=== PATIENT | male | born 1985 | race African-American/Black ===

== ENCOUNTER 2019-06-17 09:22 | Inpatient (IN) | payer OTHER ==
[2019-06-17] MEDS ORDERED: morphine CARPU-JECT 2 MG/1 ML DISP.SYRIN IVPUSH ONE (10:03)
[2019-06-17] MEDS ORDERED: SODIUM CHLORIDE 1,000 ML IV STA (10:04)
[2019-06-17] MEDS ORDERED: MORPHINE SULFATE 2 MG/ML VIAL ONE (10:27)
[2019-06-17 11:18] LABS: BASO % 0.3 % (0-2.0); EOS % 0.3 % (0-4.5); HEMATOCRIT 41.2 % (35.4-49); HEMOGLOBIN 13.4 GM/dL (11.7-16.9); MCHC 32.5 g/dl (32.0-35.9); MEAN CELL VOLUME 83.2 fl (80-96); MEAN PLT VOLUME 9.6 fl (7.5-11.1); MONO % 7.1 % (3.8-10.2); NEUT % 84.3 % (42.8-82.8); PLATELET COUNT 218 K/MM3 (134-434); RBC 4.95 M/mm3 (4.00-5.60); RDW 12.7 % (11.9-15.9); WHITE BLOOD COUNT 17.6 K/mm3 (4.0-10.0)
[2019-06-17 11:39] LABS: ALBUMIN 3.8 g/dl (3.4-5.0); BILIRUBIN,TOTAL 0.9 mg/dL (0.2-1); BLOOD UREA NITROGEN 7.6 mg/dL (7-18); CALCIUM 9.4 mg/dL (8.5-10.1); CREATININE 1.3 mg/dL (0.55-1.3); POTASSIUM 4.6 mmol/L (3.5-5.1); TOT PROT 7.6 g/dl (6.4-8.2)
[2019-06-17] MEDS ORDERED: ACETAMINOPHEN 1000 MG/100 ML VIAL (NON FORMULARY) IVPB ONE (12:00)
--- NOTE | 2019-06-17 12:02 | PDOC ---
Documentation entered by Satya Márquez SCRIBE, acting as scribe for Lesly Monroy MD. Lesly Monroy MD: This documentation has been prepared by the Willi rodriguez Daniel, SCRIBE, under my direction and personally reviewed by me in its entirety. I confirm that the documentation accurately reflects all work, treatment, procedures, and medical decision making performed by me. Attending Attestation - Resident Resident Name: Srinivas Hernandez - ED Attending Attestation I have performed the following: I have examined & evaluated the patient, The case was reviewed & discussed with the resident, I agree w/resident's findings & plan, Exceptions are as noted - HPI HPI: 06/17/19 11:59 The patient is a 34 year old male with a past medical history of rectal abscess s/p surgical intervention here today for evaluation of rectal pain. The patient reports that his pain started on tuesday (04/15/2020) and describes it as internal rectal pain. He states that his pain is worse with bowel movement ( last BM today and was normal) and after urination. Patient recently emigrated from [place]. Patient denies headache, lightheadedness. Denies fever, chills. Denies chest pain, shortness of breath. Denies nausea, vomiting, diarrhea, abdominal pain. Allergies: NKA - Physicial Exam PE: 06/17/19 12:00 agree with resident exam - Medical Decision Making 06/17/19 12:00 34yo M hx perirectal abscess requiring surgical intervention presents to the ED with perirectal pain concerning for recurrence No systemic signs of infection - pt denies f/c, N/V. Normal BM today, had pain when defecting however Plan for labs, CTAP with PO and IV contrast, pain control, reassess CTAP with R posteriolateral perirectal abscess - case discussed with Dr. Love who will take pt to OR. Pt admitted to hospitalist for further mgmt
[2019-06-17] MEDS ORDERED: ACETAMINOPHEN INJECTION 100 ML IVPB ONE (12:47)
--- NOTE | 2019-06-17 13:53 | PDOC ---
History of Present Illness - General Chief Complaint: Pain Stated Complaint: LOWER BACK PAIN Time Seen by Provider: 06/17/19 09:31 History Source: Patient Exam Limitations: No Limitations - History of Present Illness Initial Comments: 34 yo M with a hx of rectal abscess that was surgically intervened upon 3 years ago in [place] presents to the emergency department for rectal pain that has been ongoing since 06/15/2019. Per the patient, the pain feels similar to the pain he had when the rectal abscess was present. The patient says the pain exacerbates worse with bowel movements, but denies hematochezia and melena. In addition, he has pain worsening at the end of urination, but denies dysuria, hematuria, and urinary frequency. Denies the following: fevers, chills, SOB, chest pain, nausea, vomiting, abdominal pain, and leg pain/swelling. Allergies: NKDA Past History - Past Medical History Allergies/Adverse Reactions: Allergies Allergy/AdvReac Type Severity Reaction Status Date / Time No Known Allergies Allergy Verified 06/17/19 09:29 Home Medications: Ambulatory Orders Acetaminophen [Tylenol .Regular Strength -] 650 mg PO Q4H PRN #60 tablet Amox-Tr/K Cl [Augmentin - 875Mg Tablet] 1 tab PO BID #14 tablet 06/20/19 Docusate Sodium [Colace -] 100 mg PO BID #30 capsule 06/20/19 Ibuprofen [Motrin -] 400 mg PO TID #21 tablet 06/20/19 COPD: No - Psycho Social/Smoking Cessation Hx Smoking History: Never smoked Review of Systems - Review of Systems Able to Perform ROS?: Yes Is the patient limited Gabonese proficient: No Constitutional: No: Chills, Diaphoresis, Fever, Weakness HEENTM: No: Eye Pain, Ear Pain, Nose Pain, Throat Pain, Mouth Pain Cardiac (ROS): No: Chest Pain, Lightheadedness, Palpitations, Chest Tightness ABD/GI: No: Constipated, Diarrhea, Nausea, Rectal Bleeding, Vomiting, Tarry Stools : Yes: Other (rectal pain). No: Burning, Dysuria, Hematuria, Incontinence Musculoskeletal: No: Back Pain, Joint Pain, Neck Pain Integumentary: No: Bruising, Erythema, Rash Neurological: No: Headache, Numbness, Tingling, Tremors Psychiatric: No: Change in Appetite Endocrine: No: Unexplained Weight Loss Hematologic/Lymphatic: No: Anemia *Physical Exam - Vital Signs Last Vital Signs Temp Pulse Resp BP Pulse Ox 98.6 F 79 18 119/75 99 06/17/19 09:26 06/17/19 09:26 06/17/19 09:26 06/17/19 09:26 06/17/19 09:26 - Physical Exam General Appearance: Yes: Nourished, Appropriately Dressed. No: Apparent Distress, Intoxicated HEENT: positive: EOMI, TYE, Normal Voice, Symmetrical, Pharynx Normal, Other ( dry mucous membranes). negative: Pale Conjunctivae, Scleral Icterus (R), Scleral Icterus (L), Muffled/Hoarse voice, Pharyngeal Erythema, Tonsillar Exudate, Tonsillar Erythema, Nasal Congestion, Rhinorrhea, Sinus Tenderness Neck: positive: Trachea midline, Supple. negative: Tender, Lymphadenopathy (R) , Lymphadenopathy (L), Tender lateral, Tender midline Respiratory/Chest: positive: Lungs Clear, Normal Breath Sounds. negative: Chest Tender, Respiratory Distress, Accessory Muscle Use, Crackles, Rales, Rhonchi, Stridor, Wheezing Cardiovascular: positive: Regular Rhythm, Regular Rate, S1, S2. negative: Systolic Murmur Gastrointestinal/Abdominal: positive: Normal Bowel Sounds, Flat, Soft. negative : Tender, Distended, Guarding, Rebound Rectal Exam: positive: normal rectal tone, other (fluctuance noted in the right lateral aspect of the rectum tender to palpation). negative: melena, heme positive stool, hemorrhoids Lymphatic: negative: Adenopathy Musculoskeletal: positive: Normal Inspection. negative: CVA Tenderness, Vertebral Tenderness Extremity: positive: Normal Capillary Refill, Normal Inspection, Normal Range of Motion. negative: Tender, Swelling, Calf Tenderness Integumentary: positive: Normal Color, Dry, Warm. 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 negative: EOM Palsy, Facial Droop , Numbness, Sensory Deficit ED Treatment Course - LABORATORY CBC & Chemistry Diagram: 06/20/19 10:30 06/20/19 10:30 - ADDITIONAL ORDERS Additional order review: Laboratory Results 06/17/19 10:50 Sodium 141 Potassium 4.6 Chloride 106 Carbon Dioxide 30 Anion Gap 6 L BUN 7.6 Creatinine 1.3 Est GFR (CKD-EPI)AfAm 82.51 Est GFR (CKD-EPI)NonAf 71.19 Random Glucose 95 Calcium 9.4 Total Bilirubin 0.9 AST 19 ALT 25 Alkaline Phosphatase 69 Total Protein 7.6 Albumin 3.8 06/17/19 10:50 RBC 4.95 MCV 83.2 MCHC 32.5 RDW 12.7 MPV 9.6 Neutrophils % 84.3 H Lymphocytes % 8.0 Monocytes % 7.1 Eosinophils % 0.3 Basophils % 0.3 - Medications Given in the ED: ED Medications Discontinued Medications Generic Name Dose Route Start Last Admin Trade Name Freq PRN Reason Stop Dose Admin Acetaminophen 1,000 mg 06/17/19 12:00 06/17/19 12:51 Ofirmev Injection - IVPB 06/17/19 12:01 1,000 mg ONCE ONE Administration Sodium Chloride 1,000 mls @ 1,000 mls/hr 06/17/19 10:04 06/17/19 10:50 Normal Saline - IV 06/17/19 11:03 1,000 mls/hr ASDIR STA Administration Morphine Sulfate 2 mg 06/17/19 10:03 06/17/19 10:50 Morphine Injection - IVPUSH 06/17/19 10:04 2 mg ONCE ONE Administration Medical Decision Making - Medical Decision Making 34 yo M with a hx of rectal abscess that was surgically intervened upon 3 years ago in [place] presents to the emergency department for rectal pain that has been ongoing since 06/15/2019. Initial vitals: Initial Vital Signs Temp Pulse Resp BP Pulse Ox 98.6 F 79 18 119/75 99 06/17/19 09:26 06/17/19 09:26 06/17/19 09:26 06/17/19 09:26 06/17/19 09:26 Work up: patient presents with rectal pain with a known history of abscess. the patient denies purulent discharge. no fever. will obtain labs and CTAP to evaluate for potential abscess. Laboratory Tests 06/17/19 06/17/19 06/17/19 10:50 10:50 12:30 WBC 17.6 H RBC 4.95 Hgb 13.4 Hct 41.2 MCV 83.2 MCH 27.0 MCHC 32.5 RDW 12.7 Plt Count 218 MPV 9.6 Absolute Neuts (auto) 14.9 H Neutrophils % 84.3 H Lymphocytes % 8.0 Monocytes % 7.1 Eosinophils % 0.3 Basophils % 0.3 Nucleated RBC % 0 Sodium 141 Potassium 4.6 Chloride 106 Carbon Dioxide 30 Anion Gap 6 L BUN 7.6 Creatinine 1.3 Est GFR (CKD-EPI)AfAm 82.51 Est GFR (CKD-EPI)NonAf 71.19 Random Glucose 95 Calcium 9.4 Total Bilirubin 0.9 AST 19 ALT 25 Alkaline Phosphatase 69 Total Protein 7.6 Albumin 3.8 Urine Color Yellow Urine Appearance Clear Urine pH 6.0 Ur Specific [place] 1.011 Urine Protein Negative Urine Glucose (UA) Negative Urine Ketones Negative Urine Blood Negative Urine Nitrite Negative Urine Bilirubin Negative Urine Urobilinogen 1.0 Ur Leukocyte Esterase Negative leukocytosis noted CTAP shows an approximately 4.5 x 3.5 x 2.7 cm abscess cavity containing fluid and air noted within the right posterolateral miguel-rectal region. Tylenol and morphine were given for pain control. I consulted surgical PAs who agree this is not appropriate for ID in the emergency department and will require surgical intervention. Patient was accepted for pending ID of miguel-rectal abscess with leukocytosis. Dispo; Admit Discharge - Discharge Information Problems reviewed: Yes Clinical Impression/Diagnosis: Miguel-rectal abscess Condition: Fair - Follow up/Referral - Patient Discharge Instructions - Post Discharge Activity
[2019-06-17 13:54] LABS: URINE APPEARANCE CLEAR; URINE BILIRUBIN NEGATIVE (NEGATIVE); URINE COLOR YELLOW; URINE GLUCOSE (UA) NEGATIVE (NEGATIVE); URINE KETONE NEGATIVE (NEGATIVE); URINE LEUK ESTERASE NEGATIVE (NEGATIVE); URINE NITRITE NEGATIVE (NEGATIVE); URINE PROTEIN NEGATIVE (NEGATIVE)
[2019-06-17] MEDS ORDERED: morphine CARPU-JECT 4 MG/1 ML DISP.SYRIN IVPUSH ONE (15:42)
[2019-06-17] MEDS ORDERED: morphine SULFATE 4 MG/ML VIAL ONE (15:59)
[2019-06-17] MEDS ORDERED: CIPROFLOXACIN 400 MG/D5W 400 MG/200 ML IVPB IVPB ONE (16:08)
[2019-06-17] MEDS ORDERED: MORPHINE SULFATE 2 MG/ML VIAL IVPUSH PRN ×2 (17:00)
--- NOTE | 2019-06-17 17:00 | HP ---
Admitting History and Physical - Primary Care Physician PCP: none - Admission Chief Complaint: Rectal pain History of Present Illness: 34M with no significant PMH who presents to the hospital with a chief complaint of rectal pain for the last 2-3 days. Patient states he has a history of having a miguel-rectal abscess about 3 years ago and it was drained in the country of [place]. He states he came to the [facility] about a year ago and has not seen a doctor for preventative care at all. He endorses feeling a bit warm for the past 2 days but denies nausea vomiting fever chills chest pain SOB diarrhea constipation or abdominal pain. He has been eating and drinking well. He had a normal BM today but he had pain with defecation. Unable to provide much history about his exact and complete work up in [place]. Denies having a colonoscopy in the past or at the time of his diagnosis. Denies a history of colon cancer in himself or his family. Denies having a history of inflammatory bowel disease. When I asked about his family history he said he has a big family and doesn't know much about anyone's medical history not even primary relatives (Mother father brothers sisters). Denies being on any chronic medications or having any chronic medical problems. When i was able to be alone with the patient I asked about a history of high risk sexual behavior, anal penetration, history of STIs all of which he denied. In the ER he was noted to have leukocytosis with a WBC count of 17.6. He had a CT of the abdomen and pelvis with IV contrast which showed a right sided posterolateral perirectal abscess measuring 4.5x3.5x2.7cm with air and fluid in the abscess. The rest of his CBC CMP UA, and vital signs were unremarkable. History Source: Patient, Significant Other ( at bedside) Limitations to Obtaining History: No Limitations - Past Medical History Gastrointestinal: Yes: Diverticulosis (seen on CT today), Other (perirectal abscess s/p drainage 3 years ago in [place].) Infectious Disease: Yes: Other (perirectal abscess s/p drainage 3 years ago in [place].) - Past Surgical History Additional Past Surgical History: perirectal abscess drainage 3 years ago in [place] - Smoking History Smoking history: Never smoked - Social History Usual Living Arrangement: Yes: With Spouse Do you think of yourself as: Straight/Heterosexual ADL: Independent Home Medications - Allergies Allergies/Adverse Reactions: Allergies Allergy/AdvReac Type Severity Reaction Status Date / Time No Known Allergies Allergy Verified 06/17/19 09:29 Family Medical History Family History: Denies (patient does not know about family members medical histories. States he has a very bi family. doesnt know about his mother father sisters brothers histories ) Review of Systems - Review of Systems Constitutional: reports: Other (feeling warm for last 2 days) Eyes: reports: No Symptoms HENT: reports: No Symptoms Neck: reports: No Symptoms Cardiovascular: reports: No Symptoms Respiratory: reports: No Symptoms Gastrointestinal: reports: Other (rectal pain) Genitourinary: reports: No Symptoms Musculoskeletal: reports: No Symptoms Integumentary: reports: No Symptoms Neurological: reports: No Symptoms Endocrine: reports: No Symptoms Hematology/Lymphatic: reports: No Symptoms Psychiatric: reports: No Symptoms Pain Intensity: 6 Physical Examination Vital Signs: Vital Signs Temperature 98.6 F 06/17/19 09:26 Pulse Rate 76 06/17/19 15:50 Respiratory Rate 20 06/17/19 15:50 Blood Pressure 145/88 06/17/19 15:50 O2 Sat by Pulse Oximetry (%) 97 06/17/19 15:50 Constitutional: Yes: Well Nourished, No Distress, Calm Eyes: Yes: WNL, Conjunctiva Clear, EOM Intact HENT: Yes: Atraumatic, Normocephalic, Other (tongue is white and dry from dry oral mucosa but not thrush.) Neck: Yes: Supple Cardiovascular: Yes: WNL, Regular Rate and Rhythm Respiratory: Yes: WNL, Regular, CTA Bilaterally Gastrointestinal: Yes: WNL, Normal Bowel Sounds, Soft ...Rectal Exam: Yes: Deferred (patient did not want another rectal exam because he already had a couple from ER physicians) Renal/: Yes: WNL Musculoskeletal: Yes: WNL Extremities: Yes: WNL Edema: No Neurological: Yes: Alert, Oriented ...Motor Strength: WNL Psychiatric: Yes: Alert, Oriented Labs: CBC, BMP 06/17/19 10:50 06/17/19 10:50 Imaging - Results Cat Scan: Report Reviewed, Image Reviewed (4.5x3.5x2.7cm right posterolateral perirectal abscess) Assessment/Plan 34M with history of perirectal abscess s/p surgical drainage 3 years ago in [place] presents to the hospital with rectal pain found to have a right posterolateral perirectal abscess. right posterolateral 4.5x3.5x2.7cm perirectal abscess: got ciprofloxacin and flagyl in ER Patient not currently septic leukocytosis of 17.[address] Love will take patient to OR for incision and drainage tomorrow NPO past midnight pre-op labs including coags and type and screen pre-op EKG pain control patient will require GI evaluation/work up with colonoscopy which can be done as an outpatient vs inpatient pain control panculture if spikes fever will continue flagyl 500mg IV q8h and start ceftriaxone daily Patient agreeable to HIV screening-counselled. Oraquick screen ordered trend CBC CTAP also showed sigmoid diverticulosis without diverticulitis will need GI eval and likely colonoscopy which can be done as outpatient vs inpatient FEN: 05/31 NS @ 83ml/hr no electrolyte issues regular diet then NPO past midnight for OR PPx: SCDs for now and early ambulation to avoid DVT. will hold off on chemical PPx as patient s going to OR tomorrow No GI PPx indicated Visit type - Emergency Visit Emergency Visit: Yes Care time: The patient presented to the Emergency Department on the above date and was hospitalized for further evaluation of their emergent condition. - New Patient This patient is new to me today: Yes Date on this admission: 06/17/19 - Critical Care Critical Care patient: No
[2019-06-17] MEDS: SODIUM CHLORIDE 0.45% 1,000 ML IV SCH (19:07)
[2019-06-17] MEDS ORDERED: ACETAMINOPHEN 325 MG TABLET (FP) ONE (20:01)
[2019-06-17] MEDS: ACETAMINOPHEN 325 MG TABLET (FP) PO PRN (20:06)
[2019-06-18] MEDS: ACETAMINOPHEN 325 MG TABLET (FP) PO PRN ×3 (02:16→16:39)
[2019-06-18] MEDS ORDERED: MELATONIN 5 MG TABLETS PO ONE (02:21)
[2019-06-18 03:28] VITALS: BMI 26.0
--- NOTE | 2019-06-18 07:51 | CONSULT ---
- Consultation REQUESTING PROVIDER: CONSULT REQUEST: We have been asked to surgically evaluate this patient for perirectal abscess PCP:Yair Aldana MD HISTORY OF PRESENT ILLNESS: 34yo M was consulted for perirectal abscess. Pt states that he started having Rt sided rectal pain about 3 days ago that has been getting worse. Pt states he has a history of perirectal abscess in the area that was drained about 2 years ago in [place]. Pt admits to fevers and chills yesterday. Pt denies n/v , diarrhea, constipation. PMHx: denies Home Medications Medication Instructions Recorded NK [No Known Home Medication] 06/18/19 Allergies Allergy/AdvReac Type Severity Reaction Status Date / Time No Known Allergies Allergy Verified 06/17/19 09:29 REVIEW OF SYSTEMS: CONSTITUTIONAL: Absent: fever, chills, diaphoresis, generalized weakness, malaise, loss of appetite, weight change CARDIOVASCULAR: Absent: chest pain, syncope, palpitations, irregular heart rate, lightheadedness , peripheral edema RESPIRATORY: Absent: cough, shortness of breath, dyspnea with exertion, wheezing, stridor, hemoptysis GASTROINTESTINAL: Absent: abdominal pain, abdominal distension, nausea, vomiting, diarrhea, constipation, melena, hematochezia GENITOURINARY: Absent: dysuria, frequency, urgency, hesitancy, hematuria, flank pain, genital pain MUSCULOSKELETAL: Absent: myalgia, arthralgia, joint swelling, back pain, neck pain SKIN: Absent: rash, itching, pallor HEMATOLOGIC/IMMUNOLOGIC: Absent: easy bleeding, easy bruising, lymphadenopathy NEUROLOGIC: Absent: headache, focal weakness, paresthesias, dizziness, unsteady gait, seizure, mental status changes, bladder or bowel incontinence PSYCHIATRIC: Absent: anxiety, depression, suicidal or homicidal ideation, hallucinations. PHYSICAL EXAM: GENERAL: Awake, alert, and fully oriented, in no acute distress. HEAD: Normal with no signs of trauma. EYES: PERRL, sclera anicteric, conjunctiva clear. NECK: Normal ROM LUNGS: breathing comfortably HEART: Regular rate and rhythm. No murmurs ABDOMEN: Soft, nontender, not distended, normoactive bowel sounds, no guarding, no rebound, no masses. No organomegaly. Buttocks: swelling and tenderness on Rt buttock adjacent to rectum, no drainage , mild erythema. NEUROLOGICAL: Normal speech, gait not observed. PSYCH: Cooperative. Good eye contact. Appropriate mood and affect. SKIN: Warm, dry, normal turgor, no rashes or lesions noted. Vital Signs Temperature 100.5 F H 06/18/19 06:17 Pulse Rate 81 06/18/19 06:17 Respiratory Rate 20 06/18/19 06:17 Blood Pressure 125/62 06/18/19 06:17 O2 Sat by Pulse Oximetry (%) 100 06/17/19 21:00 Lab Results WBC 17.6 K/mm3 (4.0-10.0) H 06/17/19 10:50 RBC 4.95 M/mm3 (4.00-5.60) 06/17/19 10:50 Hgb 13.4 GM/dL (11.7-16.9) 06/17/19 10:50 Hct 41.2 % (35.4-49) 06/17/19 10:50 MCV 83.2 fl (80-96) 06/17/19 10:50 MCHC 32.5 g/dl (32.0-35.9) 06/17/19 10:50 RDW 12.7 % (11.9-15.9) 06/17/19 10:50 Plt Count 218 K/MM3 (134-434) 06/17/19 10:50 Sodium 141 mmol/L (136-145) 06/17/19 10:50 Potassium 4.6 mmol/L (3.5-5.1) 06/17/19 10:50 Chloride 106 mmol/L (98-107) 06/17/19 10:50 Carbon Dioxide 30 mmol/L (21-32) 06/17/19 10:50 Anion Gap 6 MMOL/L (8-16) L 06/17/19 10:50 BUN 7.6 mg/dL (7-18) 06/17/19 10:50 Creatinine 1.3 mg/dL (0.55-1.3) 06/17/19 10:50 Random Glucose 95 mg/dL (74-106) 06/17/19 10:50 Calcium 9.4 mg/dL (8.5-10.1) 06/17/19 10:50 Cat Scan: Report Reviewed, Image Reviewed (4.5x3.5x2.7cm right posterolateral perirectal abscess) Problem List - Problems (1) Karen-rectal abscess Assessment/Plan: Plan -abscess is fairly large and deep so will plan to drain in the operating room today. -please keep pt NPO -explained to pt that he most likely has a anal fistula, due to the recurrent nature of his abscesses, explained that pt will need to follow up as an outpatient after abscess has resolved to treat the fistula Pt discussed with Dr. Love who agrees with plan Code(s): K61.1 - RECTAL ABSCESS
[2019-06-18 08:09] LABS: BASO % 0.3 % (0-2.0); EOS % 0.3 % (0-4.5); HEMATOCRIT 37.6 % (35.4-49); HEMOGLOBIN 12.5 GM/dL (11.7-16.9); LYMPH % 11.6 % (8-40); MCH 27.3 pg (25.7-33.7); MCHC 33.1 g/dl (32.0-35.9); MEAN CELL VOLUME 82.3 fl (80-96); MEAN PLT VOLUME 9.5 fl (7.5-11.1); MONO % 8.7 % (3.8-10.2); NEUT % 79.1 % (42.8-82.8); PLATELET COUNT 219 K/MM3 (134-434); RBC 4.57 M/mm3 (4.00-5.60); RDW 12.4 % (11.9-15.9); WHITE BLOOD COUNT 18.1 K/mm3 (4.0-10.0)
[2019-06-18 08:18] LABS: BLOOD UREA NITROGEN 9.2 mg/dL (7-18); CALCIUM 8.8 mg/dL (8.5-10.1); CREATININE 1.3 mg/dL (0.55-1.3); POTASSIUM 3.6 mmol/L (3.5-5.1)
[2019-06-18 08:29] LABS: INR 1.23 (0.83-1.09); PROTHROMBIN TIME (PATIENT) 14.6 SEC (9.7-13.0)
[2019-06-18 08:32] LABS: ACTIVATED PTT 29.9 SECONDS (25.2-36.5)
--- NOTE | 2019-06-18 08:57 | PN ---
Teaching Attending Note Name of Resident: Bisi Ruiz ATTENDING PHYSICIAN STATEMENT I saw and evaluated the patient. I reviewed the resident's note and discussed the case with the resident. I agree with the resident's findings and plan as documented. SUBJECTIVE: Patient complaint of severe rectal pain OBJECTIVE: Vital Signs Temperature 100.5 F H 06/18/19 06:17 Pulse Rate 81 06/18/19 06:17 Respiratory Rate 20 06/18/19 06:17 Blood Pressure 125/62 06/18/19 06:17 O2 Sat by Pulse Oximetry (%) 100 06/17/19 21:00 General: Young man in distress due to rectal pain, comfortable, not in distress HEENT; mucous membranes moist, no anemia, no jaundice, PERRLA, no nystagmus Neck: No JVD, supple, no bruit, thyroid palpably normal, normal carotid pulsations. Chest: Nontender, clear to auscultation bilaterally CVS: S1-S2 regular no murmur/gallop/rub Abdomen: Perirectal abscess nondistended, soft, bowel sounds present. 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: AO X3 , no gross motor sensory deficit CBC, BMP 06/18/19 07:00 06/18/19 07:00 Active Medications Acetaminophen (Tylenol -) 650 mg PO Q4H PRN PRN Reason: pain 1-3 or fever Last Admin: 06/18/19 02:16 Dose: 650 mg Sodium Chloride (1/2 Normal Saline) 1,000 mls @ 83 mls/hr IV ASDIR ROBYN Last Admin: 06/17/19 19:07 Dose: 83 mls/hr Ceftriaxone Sodium 1 gm/ (Dextrose) 50 mls @ 100 mls/hr IVPB DAILY ROBYN Metronidazole (Flagyl 500mg Premixed Ivpb -) 500 mg in 100 mls @ 100 mls/hr IVPB Q8H-IV ROBYN Last Admin: 06/18/19 02:17 Dose: 100 mls/hr Influenza Virus Vaccine Quadrival (Flulaval Quad ) 60 mcg IM .ONCE ONE Stop: 06/18/19 10:01 Morphine Sulfate (Morphine Sulfate) 2 mg IVPUSH Q4H PRN PRN Reason: PAIN LEVEL 4 - 6 Last Admin: 06/18/19 00:42 Dose: 2 mg Morphine Sulfate (Morphine Sulfate) 4 mg IVPUSH Q4H PRN PRN Reason: PAIN LEVEL 7 - 10 Last Admin: 06/18/19 04:00 Dose: [address] abdomen: 17.6. He had a CT of the abdomen and pelvis with IV contrast which showed a right sided posterolateral perirectal abscess measuring 4.5x3.5x2.7cm ASSESSMENT AND PLAN: 34 years old man history of perirectal abscess presents with rectal pain imaging shows right-sided perirectal abscess on IV antibiotics And pain medication n.p.o. for possible surgery. Plan: Continue current management follow-up surgery recommendations. Problem List - Problems (1) Karen-rectal abscess Assessment/Plan: We will follow-up surgery recommendation, continue IV ceftriaxone and Flagyl follow-up culture result, pain controlled. Problems reviewed: Yes Code(s): K61.1 - RECTAL ABSCESS
[2019-06-18] MEDS ORDERED: cefTRIAXone SODIUM 1 GM VIAL ONE (09:25)
[2019-06-18] MEDS ORDERED: DEXTROSE 5%-WATER - 50 ML IVPB ONE (09:25)
[2019-06-18] MEDS: SODIUM CHLORIDE 0.45% 1,000 ML IV SCH (09:57)
--- NOTE | 2019-06-18 09:57 | EKG ---
Test Reason : Blood Pressure : / mmHG Vent. Rate : 100 BPM Atrial Rate : 100 BPM P-R Int : 138 ms QRS Dur : 088 ms QT Int : 310 ms P-R-T Axes : 060 004 031 degrees QTc Int : 399 ms NORMAL SINUS RHYTHM POSSIBLE ANTERIOR INFARCT , AGE UNDETERMINED ABNORMAL ECG NO PREVIOUS ECGS AVAILABLE Confirmed by VIVEK CASTRO MD ([id number]) on 06/18/2019 9:57:37 AM Referred By: Confirmed By:VIVEK CASTRO MD
[2019-06-18] MEDS ORDERED: CEFTRIAXONE 1 GM in DEXTROSE 5%-WATER - 50 ML IVPB SCH (10:00)
[2019-06-18] MEDS ORDERED: FLU VACCINE QUAD 60 MCG/0.5 ML (MDV 19-20) IM ONE (10:00)
[2019-06-18] MEDS ORDERED: ONDANSETRON 4 MG/2 ML VIAL IVPUSH PRN ×2 (10:14→12:17)
[2019-06-18] MEDS ORDERED: LACTATED RINGERS SOLUTION 1,000 ML IV SCH (10:15)
--- NOTE | 2019-06-18 11:12 | PN ---
Progress Note (short form) - Note Progress Note: Attending Surgeon 34 y/o male w/rectal pain presents to the [facility] ED; w/u reveals right sided perirectal abscess; recurrent by hx.;for EUA and I and D under general anesthesia; r/b/t/a's d/w him and informed consent obtained; possibility of a fistula d/w him as well. Adriel Love MD FACS
[2019-06-18] MEDS ORDERED: MIDAZOLAM HCL 2 MG/2 ML SINGLE DOSE VIAL ONE ×3 (11:26→11:31)
--- NOTE | 2019-06-18 12:09 | OP ---
Operative Note - Note: Operative Date: 06/18/19 Pre-Operative Diagnosis: recurrent perirectal abscess Operation: EUA/I and D right ischiorectal abscess Findings: recurrent right ischirectal abscess Post-Operative Diagnosis: Other (recurrent right ischiorectal abscess) Surgeon: Adriel Love Statistical Technician: Jaxon Matthew Anesthesiologist/FRAUD PREVENTION ANALYST: Argelia Smith Anesthesia: Spinal Specimens Removed: none Estimated Blood Loss (mls): 5 Drains & Tubes with Location: 1" Iodoform packing
[2019-06-18] MEDS: LACTATED RINGERS SOLUTION 1,000 ML IV SCH ×2 (12:35→15:15)
[2019-06-18] MEDS ORDERED: ACETAMINOPHEN 325 MG TABLET (FP) ONE (13:03)
[2019-06-18] MEDS: oxyCODONE HCL 5 MG TABLET PO PRN (16:39)
--- NOTE | 2019-06-18 18:38 | OP ---
DATE OF OPERATION: 06/18/2019 PREOPERATIVE DIAGNOSIS: Recurrent right perirectal abscess. POSTOPERATIVE DIAGNOSIS: Recurrent right ischiorectal abscess. PROCEDURE: Examination under anesthesia and incision and drainage of recurrent right ischiorectal abscess. SURGEON: Adriel Love MD CARE AIDE: Jaxon Matthew PA-C ANESTHESIA: Spinal with sedation. OPERATIVE FINDINGS: There was a deep ischiorectal space, recurrent abscess. The rest of the findings were unremarkable except for evidence of previous surgery and scarring on the perianal skin and subcutaneous tissue. DESCRIPTION OF PROCEDURE: The patient was placed on the operating table in the dorsal lithotomy position after the placement of spinal anesthesia. The perianal area and genitalia were prepped with Betadine and draped in sterile fashion. A timeout was taken, and exam under anesthesia was carried out which revealed a bulging mass high up in the rectum on the right side. Next, incision was made with a scalpel over the previous surgical scar and taken down through skin and scarred subcutaneous tissue, and then, the deep ischiorectal space was entered with drainage of copious amounts of foul-smelling, purulent material. Drainage was sent for culture and sensitivity and copious irrigation carried out with a 50/50 mixture of saline and peroxide. Hemostasis was secured with electrocautery and the wound further irrigated with sterile saline. Hemostasis was again verified, and then, the abscess cavity was packed with 1-inch Iodoform gauze. Dry sterile dressings were placed, and a Fan shield was placed and the patient transported to the postanesthesia care unit in stable condition, awake and alert. ESTIMATED BLOOD LOSS: 5 mL. REPLACEMENTS: Crystalloid. DRAINS: One-inch Iodoform packing. SPECIMENS: None. I, Adriel Love, was physically present in the operating room from the time the patient was placed on the operating table until he was transferred to the postanesthesia care unit in my accompaniment. MD MICHAEL Hinds/[id number] MTDD
[2019-06-18] MEDS ORDERED: ACETAMINOPHEN 1000 MG/100 ML VIAL (NON FORMULARY) IVPB PRN (19:05)
[2019-06-19] MEDS: ACETAMINOPHEN 325 MG TABLET (FP) PO PRN ×3 (01:31→17:48)
[2019-06-19] MEDS: LACTATED RINGERS SOLUTION 1,000 ML IV SCH ×2 (05:30→13:09)
--- NOTE | 2019-06-19 09:11 | PN ---
Progress Note, Physician Chief Complaint: Patient still complaint of pain History of Present Illness: 34 years old man history of perirectal abscess presents with rectal pain imaging shows right-sided perirectal abscess on IV antibiotics, currently on IV antibiotic, pain management status post I&D. - Current Medication List Current Medications: Active Medications Acetaminophen (Tylenol -) 650 mg PO Q4H PRN PRN Reason: pain 1-3 or fever Last Admin: 06/19/19 05:51 Dose: 650 mg Acetaminophen (Ofirmev Injection -) 1,000 mg IVPB Q6H PRN PRN Reason: FEVER Last Admin: 06/18/19 19:14 Dose: 1,000 mg Ceftriaxone Sodium 1 gm/ (Dextrose) 50 mls @ 100 mls/hr IVPB DAILY ROBYN Metronidazole (Flagyl 500mg Premixed Ivpb -) 500 mg in 100 mls @ 100 mls/hr IVPB Q8H-IV ROBYN Last Admin: 06/19/19 01:16 Dose: 100 mls/hr Lactated Ringer's (Lactated Ringers Solution) 1,000 mls @ 75 mls/hr IV ASDIR ROBYN Last Admin: 06/19/19 05:30 Dose: 75 mls/hr Influenza Virus Vaccine Quadrival (Flulaval Quad [id number]) 60 mcg IM .ONCE ONE Stop: 06/19/19 10:01 Ondansetron HCl (Zofran Injection) 4 mg IVPUSH Q6H PRN PRN Reason: NAUSEA AND/OR VOMITING Stop: 06/19/19 10:13 Oxycodone HCl (Roxicodone -) 5 mg PO Q4H PRN PRN Reason: PAIN LEVEL 1-5 Last Admin: 06/18/19 16:39 Dose: 5 mg - Objective Vital Signs: Vital Signs Temperature 100.9 F H 06/19/19 06:46 Pulse Rate 81 06/19/19 06:46 Respiratory Rate 20 06/19/19 06:46 Blood Pressure 136/78 06/19/19 06:46 O2 Sat by Pulse Oximetry (%) 99 06/18/19 21:00 General: Young man in distress due to rectal pain, comfortable, not in distress HEENT; mucous membranes moist, no anemia, no jaundice, PERRLA, no nystagmus Neck: No JVD, supple, no bruit, thyroid palpably normal, normal carotid pulsations. Chest: Nontender, clear to auscultation bilaterally CVS: S1-S2 regular no murmur/gallop/rub Abdomen: Perirectal abscess nondistended, soft, bowel sounds present. 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
[2019-06-19 09:46] LABS: BASO % 0.6 % (0-2.0); EOS % 0.8 % (0-4.5); LYMPH % 10.8 % (8-40); MCH 27.7 pg (25.7-33.7); MCHC 33.5 g/dl (32.0-35.9); MEAN CELL VOLUME 82.9 fl (80-96); MEAN PLT VOLUME 9.3 fl (7.5-11.1); NEUT % 77.8 % (42.8-82.8); PLATELET COUNT 249 K/MM3 (134-434); RDW 12.7 % (11.9-15.9); WHITE BLOOD COUNT 17.5 K/mm3 (4.0-10.0)
[2019-06-19] MEDS ORDERED: FLU VACCINE QUAD 60 MCG/0.5 ML (MDV 19-20) IM ONE (10:00)
[2019-06-19 10:14] LABS: BLOOD UREA NITROGEN 7.9 mg/dL (7-18); CALCIUM 8.9 mg/dL (8.5-10.1); CREATININE 1.2 mg/dL (0.55-1.3); POTASSIUM 3.8 mmol/L (3.5-5.1)
[2019-06-19] MEDS ORDERED: DEXTROSE 5%-WATER - 50 ML IVPB ONE (11:13)
[2019-06-19] MEDS ORDERED: cefTRIAXone SODIUM 1 GM VIAL ONE (11:13)
[2019-06-19] MEDS: CEFTRIAXONE 1 GM in DEXTROSE 5%-WATER - 50 ML IVPB SCH (11:20)
[2019-06-19] MEDS: oxyCODONE HCL 5 MG TABLET PO PRN (11:27)
[2019-06-19] MEDS ORDERED: morphine SULFATE 4 MG/ML VIAL IVPUSH ONE (13:00)
--- NOTE | 2019-06-19 14:49 | PN ---
Progress Note (short form) - Note Progress Note: POD#1 pt premedicated with IV pain medications for packing removal today. Vital Signs Period Temp Pulse Resp BP Sys/Andrade Pulse Ox Last 24 Hr 98.8 F-102.8 F 81-85 18-20 127-136/65-79 99 GEN: A&0x3, NAD Right perirectal area: packing removed, no purulent drainage noted. Wound irrigated with 20 cc NS and 4x4 gauze placed to keep the skin edges open. CBC, BMP 06/19/19 09:15 06/19/19 09:15 Microbiology 06/18/19 12:40 Abscess Gram Stain - Final 06/18/19 12:40 Abscess Wound Culture - Preliminary Lactose Fermenting Neg Bacilli A/p: 34 yo male s/p I&D of perirectal abscess Continue local wound care with wound irrigation/dry dressing SITZ baths daily starting tomorrow with dry dressing D/w Dr. Ivan husainx, awaiting wound culture results
[2019-06-19] MEDS ORDERED: ONDANSETRON 4 MG/2 ML VIAL IVPUSH PRN (20:02)
[2019-06-19] MEDS: DOCUSATE SODIUM 100 MG CAPSULE (FP) PO SCH (21:04)
[2019-06-20] MEDS: LACTATED RINGERS SOLUTION 1,000 ML IV SCH (00:32)
[2019-06-20 09:13] VITALS: BP 141/89; PULSE 71; TEMP 98.6
--- NOTE | 2019-06-20 09:50 | PN ---
Progress Note (short form) - Note Progress Note: POD#2 purlent drainage on the bandage today. He had a BM yesterday. Vital Signs Period Temp Pulse Resp BP Sys/Andrade Pulse Ox Last 24 Hr 98.6 F-101 F 68-82 18-20 117-141/67-89 99 GEN: A&0x3, NAD Right perirectal area: purulent drainage noted today on 4x4 gauze, area less tender. Able to palpated/irrigate wound(20 cc ns) and repack wound with corner of 4x4 gauze. Microbiology 06/18/19 12:40 Abscess Gram Stain - Final 06/18/19 12:40 Abscess Wound Culture - Preliminary Lactose Fermenting Neg Bacilli A/p: 34 yo male s/p I&D of perirectal abscess Continue local wound care with wound irrigation/dry dressing SITZ baths daily starting tomorrow with dry dressing(corner of the 4x4 gauze packed into the wound) D/w Dr. Ivan barber, awaiting wound culture results, repeat cbc today. Monitor fever curve , he had a temp yesterday after noon. The patient may also shower daily.
[2019-06-20] MEDS ORDERED: cefTRIAXone SODIUM 1 GM VIAL ONE (11:23)
[2019-06-20] MEDS ORDERED: DEXTROSE 5%-WATER - 50 ML IVPB ONE (11:23)
[2019-06-20] MEDS: CEFTRIAXONE 1 GM in DEXTROSE 5%-WATER - 50 ML IVPB SCH (11:27)
[2019-06-20] MEDS: DOCUSATE SODIUM 100 MG CAPSULE (FP) PO SCH (11:32)
[2019-06-20 12:05] LABS: BASO % 0.4 % (0-2.0); EOS % 2.6 % (0-4.5); HEMATOCRIT 37.4 % (35.4-49); HEMOGLOBIN 12.4 GM/dL (11.7-16.9); LYMPH % 14.2 % (8-40); MCH 27.3 pg (25.7-33.7); MCHC 33.2 g/dl (32.0-35.9); MEAN CELL VOLUME 82.1 fl (80-96); MEAN PLT VOLUME 9.2 fl (7.5-11.1); MONO % 8.2 % (3.8-10.2); NEUT % 74.6 % (42.8-82.8); PLATELET COUNT 263 K/MM3 (134-434); RBC 4.56 M/mm3 (4.00-5.60); RDW 12.7 % (11.9-15.9); WHITE BLOOD COUNT 12.6 K/mm3 (4.0-10.0)
[2019-06-20 12:47] LABS: CREATININE 1.2 mg/dL (0.55-1.3); POTASSIUM 4.1 mmol/L (3.5-5.1)
--- NOTE | 2019-06-20 13:04 | DS ---
Physical Examination Vital Signs: Vital Signs Temperature 98.6 F 06/20/19 09:12 Pulse Rate 71 06/20/19 09:12 Respiratory Rate 18 06/20/19 09:12 Blood Pressure 141/89 06/20/19 09:12 O2 Sat by Pulse Oximetry (%) 99 06/19/19 20:22 General: Young man in distress due to rectal pain, comfortable, not in distress HEENT; mucous membranes moist, no anemia, no jaundice, PERRLA, no nystagmus Neck: No JVD, supple, no bruit, thyroid palpably normal, normal carotid pulsations. Chest: Nontender, clear to auscultation bilaterally CVS: S1-S2 regular no murmur/gallop/rub Abdomen: Perirectal abscess nondistended, soft, bowel sounds present. 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 06/18/19 02:35 Blood Culture - Preliminary Blood - Peripheral Venous NO GROWTH OBTAINED AFTER 48 HOURS, INCUBATION TO CONTINUE FOR 3 DAYS. 06/17/19 12:30 Urine Culture - Final Urine - Urine Clean Catch Normal Urogenital Jenny CT abdomen: Labs: CBC, BMP 06/20/19 10:30 06/20/19 10:30 Discharge Summary Problems reviewed: Yes Reason For Visit: LOWER BACK PAIN/PERIRECTAL ABSCESS Current Active Problems Karen-rectal abscess (Acute) Hospital Course: 34 years old man history of perirectal abscess presents with rectal pain imaging shows right-sided perirectal abscess on IV antibiotics, patient underwent I&D by surgery team, pain improved patient remained as febrile, culture grew pansensitive E. coli patient is switched to p.o. Augmentin will be discharged home follow-up with operating surgeon. Condition: Fair - Instructions Diet, Activity, Other Instructions: Dr. Love Discharge Instructions Dear SHE[facility] [place], Post Operative Instructions Physical activity Resume your normal everyday activity as tolerated no heavy lifting or exercise until seen by your surgeon. You may walk unlimited amounts of and climb stairs. You may resume driving the car when you feel safe and comfortable behind the wheel and are no longer taking narcotics. Wound care Sitz baths daily to clean the area and after having bowl movements. Pt may also ahower and use the shower head to irrigate the wound. Cover with dry dressing, pack corner of a 4x4 gauze in the incision to keep the edges open. Do not apply lotion or ointments to area. Diet There are no dietary restrictions. Eat healthy, high-fiber foods. Drink 6 to 8 glasses of liquid each day. This will assist in keeping your bowels are regular. Pain management You may take Tylenol or acetaminophen or Ibuprofen (for example, Motrin, Advil etc.) Any pain prescription medication ordered should be taken as prescribed for moderate to severe pain. Call Dr. Love for any of the following: Severe pain not relieved by medication Fever of 101 or higher Excessive bleeding or drainage on dressing Inability to urinate Call the office at [phone] for a post operative appointment in 7 - 10 days. Disposition: HOME - Home Medications Comprehensive Discharge Medication List: Ambulatory Orders Acetaminophen [Tylenol .Regular Strength -] 650 mg PO Q4H PRN #60 tablet Amox-Tr/K Cl [Augmentin - 875Mg Tablet] 1 tab PO BID #14 tablet 06/20/19 Docusate Sodium [Colace -] 100 mg PO BID #30 capsule 06/20/19
== END 2019-06-20 14:00 | disposition home or self-care (01) | DRG 951 ==
LOC: JERFT 09:22 → JER 09:22 → JERBED 16:08 → J8W 22:38
PROVIDERS: ADMIT Internal Medicine; ATTEND Internal Medicine
PROC: 0J9B0ZZ Drainage of Perineum Subcutaneous Tissue and Fascia, Open Approach (ICD-10-PCS; principal; 2019-06-18 10:00)
DX: K61.39 Other ischiorectal abscess (principal)
CPT/HCPCS: 36415; 74177-TC; 80048; 80053; 81003; 85025; 85610; 85730; 86850; 86900; 86901; 87040; 87070; 87077; 87086; 87186; 87205; 87389; 87491; 87591; 87661; 93005; 93010; 94760; 99284-25; J0131; J7030; Q9967

== ENCOUNTER 2023-08-10 04:59 | Inpatient (IN) | payer OTHER ==
[2023-08-10] MEDS ORDERED: ACETAMINOPHEN INJECTION 100 ML IVPB ONE ×2 (05:52→14:25)
[2023-08-10] MEDS: ACETAMINOPHEN 1000 MG/100 ML BAG IVPB ONE (06:06)
[2023-08-10 06:32] LABS: BASO % 0.6 % (0-2.0); EOS % 0.6 % (0-4.5); HEMATOCRIT 42.8 % (35.4-49); HEMOGLOBIN 14.1 GM/dL (11.7-16.9); LYMPH % 9.5 % (8-40); MCH 27.2 pg (25.7-33.7); MCHC 32.9 g/dl (32.0-35.9); MEAN CELL VOLUME 82.7 fl (80-96); MEAN PLT VOLUME 9.4 fl (7.5-11.1); MONO % 9.4 % (3.8-10.2); NEUT % 79.9 % (42.8-82.8); PLATELET COUNT 227 10^3/uL (134-434); RBC 5.18 M/mm3 (4.00-5.60); RDW 12.5 % (11.9-15.9); WHITE BLOOD COUNT 14.6 K/mm3 (4.0-10.0)
[2023-08-10 06:42] LABS: INR 1.17 (0.83-1.09); PROTHROMBIN TIME (PATIENT) 13.6 SEC (9.7-13.0)
[2023-08-10 06:45] LABS: ACTIVATED PTT 30.7 SECONDS (25.2-36.5)
[2023-08-10 07:00] LABS: POTASSIUM 3.8 mmol/L (3.5-5.1)
[2023-08-10 07:01] LABS: ALBUMIN 3.7 g/dl (3.4-5.0); BLOOD UREA NITROGEN 16.1 mg/dL (7-18); CALCIUM 9.2 mg/dL (8.5-10.1)
[2023-08-10 07:04] LABS: CREATININE 1.1 mg/dL (0.55-1.3)
[2023-08-10 07:07] LABS: BILIRUBIN,TOTAL 1.9 mg/dL (0.2-1); TOT PROT 7.6 g/dl (6.4-8.2)
[2023-08-10] MEDS ORDERED: PIPERACILLIN/TAZOB 4.5 GM 4.5 GM/100 ML BAG IVPB ONE (07:56)
[2023-08-10] MEDS ORDERED: morphine SULFATE 4 MG/ML VIAL ONE (07:56)
[2023-08-10] MEDS: morphine CARPU-JECT 4 MG/1 ML DISP.SYRIN IVPUSH ONE (08:00)
[2023-08-10] MEDS: PIPERACILLIN/TAZOB 4.5 GM 4.5 GM in DEXTROSE 5%-WATER 100 ML IVPB ONE (08:25)
[2023-08-10] MEDS ORDERED: HYDROmorphone HCl 2 MG/ML VIAL ONE (10:48)
[2023-08-10] MEDS: HYDROmorphone HCl 2 MG/ML VIAL IVPUSH ONE (10:54)
[2023-08-10] MEDS ORDERED: PROMETHAZINE HCL 25 MG/1 ML VIAL IVPB PRN ×2 (10:59→13:17)
[2023-08-10] MEDS ORDERED: ONDANSETRON 4 MG/2 ML VIAL IVPUSH PRN ×2 (10:59→13:17)
[2023-08-10] MEDS ORDERED: MIDAZOLAM HCL 2 MG/2 ML SINGLE DOSE VIAL ONE (11:57)
[2023-08-10] MEDS ORDERED: ACETAMINOPHEN 1000 MG/100 ML BAG IVPB PRN (12:08)
[2023-08-10] MEDS ORDERED: BUPIVACAINE HCL/PF 0.5% (5MG/ML) 10 ML VIAL ONE (12:20)
[2023-08-10] MEDS ORDERED: MEPERIDINE HCL 25 MG/ML VIAL ONE (13:04)
[2023-08-10] MEDS: LACTATED RINGERS SOLUTION 1,000 ML IV SCH ×2 (14:05→18:04)
[2023-08-10] MEDS: IBUPROFEN 400 MG TABLET (FP) PO SCH (14:07)
[2023-08-10] MEDS: ACETAMINOPHEN 1000 MG/100 ML BAG IVPB PRN (14:27)
[2023-08-10] MEDS: VANCOMYCIN PREMIX 1.5 GM 1,500 MG/300 ML BAG IVPB ONE (14:45)
[2023-08-10] MEDS: VANCOMYCIN HCL 1,500 MG in DEXTROSE 5%-WATER - 500 ML IVPB ONE (17:38)
[2023-08-10] MEDS: PIPERACILLIN/TAZOB 3.375 GM 3.375 GM in DEXTROSE 5%-WATER - 50 ML IVPB SCH (17:53)
[2023-08-10] MEDS ORDERED: PIPERACILLIN/TAZOB 3.375 GM 3.375 GM in DEXTROSE 5%-WATER - 50 ML IVPB SCH (18:00)
[2023-08-10 18:18] VITALS: BMI 38.5
[2023-08-10] MEDS: DOCUSATE SODIUM 100 MG CAPSULE (FP) PO SCH (21:25)
[2023-08-10] MEDS: MELATONIN 5 MG TABLETS PO ONE (22:41)
[2023-08-11 09:12] LABS: BASO % 0.3 % (0-2.0); EOS % 1.6 % (0-4.5); HEMATOCRIT 37.6 % (35.4-49); HEMOGLOBIN 12.5 GM/dL (11.7-16.9); LYMPH % 15.8 % (8-40); MCH 27.4 pg (25.7-33.7); MCHC 33.3 g/dl (32.0-35.9); MEAN CELL VOLUME 82.2 fl (80-96); MEAN PLT VOLUME 9.2 fl (7.5-11.1); MONO % 10.6 % (3.8-10.2); NEUT % 71.7 % (42.8-82.8); PLATELET COUNT 234 10^3/uL (134-434); RBC 4.57 M/mm3 (4.00-5.60); RDW 12.2 % (11.9-15.9)
[2023-08-11 09:33] LABS: POTASSIUM 3.7 mmol/L (3.5-5.1)
[2023-08-11 09:37] LABS: ALBUMIN 3.2 g/dl (3.4-5.0); CALCIUM 8.9 mg/dL (8.5-10.1)
[2023-08-11 09:42] LABS: BILIRUBIN,TOTAL 1.4 mg/dL (0.2-1); TOT PROT 6.7 g/dl (6.4-8.2)
[2023-08-11] MEDS: HYDROmorphone HCl 2 MG/ML VIAL IVPB ONE (14:15)
[2023-08-11 15:06] VITALS: RESP 18
[2023-08-12 14:57] VITALS: TEMP 98.6
[2023-08-12 17:48] VITALS: BP 125/88; PULSE 70
== END 2023-08-12 19:03 | disposition home or self-care (01) | DRG 346 ==
LOC: JER 04:59 → JERBED 10:25 → J8W 17:34
PROVIDERS: ADMIT Internal Medicine; ATTEND Internal Medicine
PROC: 0D9P0ZZ Drainage of Rectum, Open Approach (ICD-10-PCS; principal; 2023-08-12)
DX: K61.1 Rectal abscess (principal)
CPT/HCPCS: 36415; 72193-TC; 80053; 83605; 85025; 85610; 85730; 86850; 86900; 86901; 87040; 87070; 87186; 87205; 93005; 93010; 94760; 99285-25; J0131

== ENCOUNTER 2025-01-25 06:05 | Day surgery (SDC) | payer OTHER ==
[2025-01-23 12:22] VITALS: BMI 26.3
[2025-01-25] MEDS ORDERED: SUCCINYLCHOLINE CHLORIDE 200 MG/10 ML SYRINGE ONE (11:22)
[2025-01-25] MEDS ORDERED: LIDOCAINE HCL/PF 2% SDV 5ML VIAL ONE (11:24)
[2025-01-25] MEDS ORDERED: ONDANSETRON 4 MG/2 ML VIAL ONE (11:24)
[2025-01-25] MEDS ORDERED: MIDAZOLAM HCL 2 MG/2 ML SINGLE DOSE VIAL ONE ×2 (11:24→12:33)
[2025-01-25] MEDS ORDERED: GLYCOPYRROLATE 0.2 MG/1 ML VIAL ONE (11:24)
[2025-01-25] MEDS ORDERED: DEXAMETHASONE SOD PHOSPHATE 4 MG/1 ML VIAL ONE (11:24)
[2025-01-25] MEDS ORDERED: PROPOFOL 20 ML ONE ×2 (11:27→12:37)
[2025-01-25] MEDS ORDERED: LACTATED RINGERS SOLUTION 1,000 ML IV SCH (12:00)
[2025-01-25] MEDS ORDERED: BUPIVACAINE HCL/PF 0.25% (2.5MG/ML) 10 ML VIAL ONE (12:13)
[2025-01-25] MEDS ORDERED: LIDOCAINE 1%/EPI 1:100000 (20 ML MULTI DOSE VIAL) ONE (12:13)
[2025-01-25] MEDS ORDERED: ACETAMINOPHEN INJECTION 100 ML ONE (12:46)
[2025-01-25] MEDS ORDERED: oxyCODONE HCL 10 MG SUSTAINED ACTING TABLET ONE (17:05)
[2025-01-25] MEDS ORDERED: ACETAMINOPHEN 500 MG TABLET (FP) ONE (18:17)
[2025-01-25 18:32] VITALS: BP 128/75; PULSE 64; RESP 20; TEMP 97.2
[2025-01-25] MEDS ORDERED: ACETAMINOPHEN 500 MG TABLET (FP) PO ONE (18:34)
== END 2025-01-25 18:56 | disposition home or self-care (01) ==
LOC: JASU-SURG 06:05
PROVIDERS: ATTEND Surgery
PROC: 0D9Q70Z Drainage of Anus with Drainage Device, Via Natural or Artificial Opening (ICD-10-PCS; principal; 2025-01-25 12:55)
DX: K60.329 Anal fistula, complex, unspecified (principal)
CPT/HCPCS: 94760